=== PATIENT | female | born 1990 | race Caucasian/White ===

== ENCOUNTER 2023-10-27 21:15 | Emergency (ER) | payer OTHER ==
[~2023-10-27] VITALS: Ht 160 cm; Wt 68.0 kg
[2023-10-27 21:50] VITALS: O2SAT 97
[2023-10-27] MEDS ORDERED: KETOROLAC TROMETHAMINE 30 MG INJ ONE (23:25)
[2023-10-27] MEDS: KETOROLAC TROMETHAMINE 30 MG INJ IM ONE (23:28)
== END 2023-10-27 23:44 | disposition left against medical advice (07) ==
LOC: ER 21:22
DX: S49.81XA Other specified injuries of right shoulder and upper arm, initial encounter (principal); W17.89XA Other fall from one level to another, initial encounter; Y93.89 Activity, other specified; Y92.89 Other specified places as the place of occurrence of the external cause; Y99.8 Other external cause status
CPT/HCPCS: 99283; 73030; 96372; J1885; A4606; A4663